=== PATIENT | female | born 1995 | race Caucasian/White ===

== ENCOUNTER → 2020-02-28 16:04 | Outpatient (CLI) | payer SELFPAY ==
[2020-03-02 16:49] LABS: HPV Reflexed? NOT INDICATED
[2020-03-02 20:08] LABS: Chlamydia By Nucleic Acid AMP Negative (Negative)
[2020-03-02 21:52] LABS: Gonococcus By Nucleic Acid AMP Negative (Negative)
== END ==
PROVIDERS: Visit Provider Student in an Organized Health Care Education/Training Program
DX: Z12.4 Encounter for screening for malignant neoplasm of cervix (principal); Z11.3 Encounter for screening for infections with a predominantly sexual mode of transmission; Z32.01 Encounter for pregnancy test, result positive
CPT/HCPCS: 87491; 87591; 88175; G0145

== ENCOUNTER → 2020-03-15 10:17 | Outpatient (CLI) | payer SELFPAY ==
[2020-03-15 11:38] LABS: Absolute Lymphocyte Count 1.45 X10^3/uL (0.83-4.51); Absolute Neutrophil Count 5.1 X10^3/uL (2.0-7.7); Basophil# 0.03 X10^3/uL; Basophil% 0.4 % (0-1); Eosinophil# 0.02 X10^3/uL; Eosinophils% 0.3 % (0-5); Hematocrit 37.3 % (37-47); Hemoglobin 13.1 g/dL (12.0-15.0); Lymphocyte # 1.45 X10^3/ul (4.0); Lymphocyte % 20.8 % (19-41); Mean Corp Hgb Conc 35.1 g/dL (32-36); Mean Corpuscular Hgb 31.9 pg (27.0-32.0); Mean Corpuscular Volume 90.8 fL (81-99); Mean Platelet Vol. 8.9 fl (6.2-12.0); Monocyte# 0.38 X10^3/uL; Monocyte% 5.5 % (0-10); NRBC Flagged by Analyzer 0 % (0-5); Neutrophil # 5.06 X10^3/uL (2.7-7.7); Neutrophil % 72.7 % (47-70); Platelet Count 349 K/mm3 (150-450); RBC Distribution Width CV 12.3 % (11.6-14.6); RBC Distribution Width SD 40.7 fl (35.1-43.9); Red Blood Count 4.11 M/mm3 (4.2-5.4)
[2020-03-15 11:55] LABS: Amphetamine Urine VISTA NEGATIVE (<1000 ng/mL); Barbiturate Urine VISTA NEGATIVE (< 200 ng/mL); Benzodiazepine Urine VISTA NEGATIVE (< 200 ng/mL); Cocaine Urine VISTA NEGATIVE (< 300 ng/mL); Ecstacy Urine VISTA NEGATIVE (< 500 ng/mL); Methadone Urine VISTA NEGATIVE (< 300 ng/mL); PCP Urine VISTA NEGATIVE (< 25 ng/mL); THC Urine VISTA NEGATIVE (< 50 ng/mL); Vista UDS pH Range 8
[2020-03-15 12:33] LABS: HIV - WCH Non-Reactive (Nonreactive); Hepatitis B Surface Antigen Non-Reactive (Nonreactive); Hepatitis C Antibody Non-Reactive (Nonreactive); Rubella IgG Reactive (Nonreactive)
[2020-03-16 03:33] LABS: Prenatal RPR NONREACTIVE (NONREACTIVE)
== END ==
PROVIDERS: Visit Provider Student in an Organized Health Care Education/Training Program
DX: Z34.81 Encounter for supervision of other normal pregnancy, first trimester (principal); G12.9 Spinal muscular atrophy, unspecified
CPT/HCPCS: 36415; 80307; 85025; 86703; 86762; 86803; 87086; 87088; 87340

== ENCOUNTER → 2020-06-25 15:18 | Outpatient (CLI) | payer SELFPAY ==
[2020-06-25 17:17] LABS: Hematocrit 33.5 % (37-47); Hemoglobin 11.2 g/dL (12.0-15.0); Mean Corp Hgb Conc 33.4 g/dL (32-36); Mean Corpuscular Hgb 31.6 pg (27.0-32.0); Mean Corpuscular Volume 94.6 fL (81-99); Mean Platelet Vol. 9.3 fl (6.2-12.0); Platelet Count 360 K/mm3 (150-450); RBC Distribution Width CV 13.2 % (11.6-14.6); RBC Distribution Width SD 46.3 fl (35.1-43.9); Red Blood Count 3.54 M/mm3 (4.2-5.4); White Blood Count 9.5 K/mm3 (4.4-11.0)
[2020-06-25 17:20] LABS: Glucose Challenge Gest 1H 50g 103 mg/dL (70-140)
== END ==
PROVIDERS: Visit Provider Student in an Organized Health Care Education/Training Program
DX: Z34.82 Encounter for supervision of other normal pregnancy, second trimester (principal)
CPT/HCPCS: 36415; 82950; 85027

== ENCOUNTER → 2020-09-18 | Outpatient (CLI) | payer SELFPAY | END | disposition home or self-care (01) | LOC: LABSPEC 17:23 | PROVIDERS: Visit Provider Student in an Organized Health Care Education/Training Program | DX: Z36.85 Encounter for antenatal screening for Streptococcus B (principal) | CPT/HCPCS: 87081 ==

== ENCOUNTER 2020-10-04 01:00 | Inpatient (IN) | payer SELFPAY ==
[2020-10-04] VITALS (26 sets, daily range): BP systolic 110–168; BP diastolic 61–103; PULSE 66–123; RESP 16–18; TEMP 36.3–37.3; O2SAT 96–99; BMI 26.4
[2020-10-04 01:23] LABS: Absolute Lymphocyte Count 2.11 X10^3/uL (0.83-4.51); Absolute Neutrophil Count 8.2 X10^3/uL (2.0-7.7); Basophil# 0.03 X10^3/uL; Basophil% 0.3 % (0-1); Eosinophil# 0.04 X10^3/uL; Eosinophils% 0.3 % (0-5); Hematocrit 33.3 % (37-47); Hemoglobin 11.2 g/dL (12.0-15.0); Lymphocyte # 2.11 X10^3/ul (0.83-4.51); Lymphocyte % 18.2 % (19-41); Mean Corp Hgb Conc 33.6 g/dL (32-36); Mean Corpuscular Hgb 30.6 pg (27.0-32.0); Mean Platelet Vol. 9.3 fl (6.2-12.0); Monocyte# 1.09 X10^3/uL; Monocyte% 9.4 % (0-10); NRBC Flagged by Analyzer 0 % (0-5); Neutrophil # 8.23 X10^3/uL (2.7-7.7); Neutrophil % 71.1 % (47-70); Platelet Count 355 K/mm3 (150-450); RBC Distribution Width CV 13.2 % (11.6-14.6); Red Blood Count 3.66 M/mm3 (4.2-5.4); White Blood Count 11.6 K/mm3 (4.4-11.0)
[2020-10-04] MEDS: Oxytocin 30 units/NS 500 ml 30 UNITS/500 ML IV.SOLN 334 UNITS IV (05:44)
[2020-10-04] MEDS: 0.9% Saline Lock 10 ML Syringe IV (05:44)
[2020-10-04] MEDS: Methylergonovine 0.2 MG/ML Ampul IM (05:47)
--- NOTE | 2020-10-04 05:57 | HP.PCM_ITS ---
History and Physical Date of Admission: 10/04/20 ACOG ANTEPARTUM RECORD - HISTORY AND PHYSICAL (10/04/2020) Name: TUYET PERKINS History of this : This is a 25 year old [id number] presents at 38 wks + 6 days gestation who presents to labor delivery in active labor. OB Physician: Марина Herzog 's Physician: UNDECIDED ...................................................................... : 1995 Age: 25 Address: [address] [place] [address] Phone: (h) [phone] (o) [phone] Insurance Carrier: Emergency Contact: OMID BARAHONAHARRIET/ [phone] ...................................................................... Final BIBIANA: 10/12/20 By Ultrasound: 9 weeks 6 days PARITY: (G-Total Pregnancies P-Fullterm,Premature,Induced AB,Spont AB, Ectopics, Multiple,Living) BIBIANA CONFIRMATION: By LMP: 01/06/20 Final BIBIANA: 10/12/20 OB PROBLEM LIST: Breast feeding; office breast feeding class enc. Desires SMA carrier screening only Genetics screening, CF carrier screening declined. 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 Spouse-Sig Other Phone No - [phone] PRIOR DELIVERY HISTORY DEL DATE GEST LAB WT LB WT OZ TYPE ANES LABOR TX ANTEPARTUM FLOW CHART VISIT GE RTC FU F F WY U U DATE WK MD WKS HT PN HR M SS BP ED WT WY GL D EF ST __ ____ ___ __ __ ___ __ __ __ ___ __ __ __ ___ __ 22 Jonnie 38 CM 1 38 V + + 124/78 0 161 ne ne FT 15 Jonnie 37 JMW 1 37 + + 124/82 sl 163 - - 08 Jonnie 36 CM 1 36 V + + 134/80 sl 160 FT 25 May 34 CM 2 34 V + + 122/62 0 157 - - 10 May 32 CM 2 32 V + + 128/72 0 156 tr ne 26 Apr 30 CM 2 30 + + 122/70 0 152 - - 12 Apr 28 CM 2 27 + + 120/72 0 149 - - 15 Mar 24 CM 4 24 + + 124/64 0 147 tr ne 15 Feb 20 CM 4 + + 116/68 0 139 - - Apr 17 CM 3 + + 122/60 0 138 - - Mar 13 CM 4 + O 118/60 0 134 ne ne 03 Mar 9 CM +U O 118/68 0 133 tr ne ANTEPARTUM NOTE(S): Oct 02 2020: Sep 25 2020: Ctxs-mild, Good FM Sep 18 2020: Sep 04 2020: Aug 20 2020: Aug 06 2020: Jul 23 2020: no concerns Jun 25 2020: GCT/labs today May 28 2020: May 07 2020: Apr 09 2020: Mar 15 2020: US today COMPREHENSIVE ANTEPARTUM NOTE(S): Oct 02 2020: Tuyet is here with SO for PNV. Feeling well with good FM. Can feel baby with hiccups. No edema noted. Having no ctx. Would like cervix check today. Urine neg/neg. LSS Oct 02 2020: 38/4w. Reports FM, but different than prior. Discussed kick counts and precautions of when to come in or call. NST REACTIVE today. Wants to wait until next week to schedule term induction. F/u 1w. CM Sep 20 2020: H taken to OB.tkg Sep 18 2020: No further chest pain. Thinks she had some heartburn yesterday. Is not taking anything for this-- advised to sheepskin pickler Tums to have in case this is needed. Good FM. Slight edema in feet. GBS and LARC done today. Declines LARC. Advised to pre-register. kbm Sep 18 2020: 36/4w. GBS done. F/u 1w. CM Sep 04 2020: No further chest pain- see note from 08/06/20. Good FM. Voicing no concerns. kbm Sep 04 2020: 34/4w visit. F/u 2w GBS. CM Aug 20 2020: Tuyet is here with SO for PNV. Having good FM. States baby is quite active. Feeling well without concerns for today. No further chest pains as before. No edema noted. Urine tr/neg. LSS Aug 20 2020: 32/3w Has sales floor associate picked out (FP in [place]). F/u 2w. CM Aug 06 2020: Tuyet is here att 30.3 w gest for visit. Feeling well. Baby active. Taking Childbirth and BF classes discussed as she is interested. DAMON. Aug 06 2020: 30/3w. Had some sharp sternal chest pain yesterday for about 1 hr. Nothing today. Denied exacerbating/remitting factors. No reflux, no associated symptoms: lightheadednss, dizziness, numbness, arm pain. Discussed these warning signs of when to go to ER. Discussed etiologies: costochondritis, reflux, physiology of , ID/PE. F/u 2w. CM Jul 23 2020: Tuyet is here for a PNV. Good FM. No edema present. No concerns expressed at this time. MK Jul 23 2020: 28/3w visit. Discussed TDap. Nephew with TGA - declined ECHO. F/u 2w. CM Jun 25 2020: Tuyet is here for PNV. GCT/labs today. Eating and talking fluids well. States she is feeling well with goo FM. No edema noted today Urine tr/neg. LSS Jun 25 2020: 24/3w visit.Glucola done today. Nephew with TGA - declined ECHO. F/u 4w. CM May 28 2020: Comprehensive US today. Feeling good FM. Glucola bottle and instructions given to be done next visit and to schedule appt after 06/25.21. May 28 2020: 20/3w visit. Anatomy US today - wnl. Glucola bottle given. Nephew with VSD - declined mfm consult with ECHO. F/u 4w. CM May 07 2020: Feeling FM. Voicing no concerns today. May 07 2020: 17/3w visit. Doing well today without issues or concerns. Family hx of TGA - plan to discuss ECHO next visit. F/u 3w with anatomy US. CM Apr 09 2020: Tuyet reporting feeling tired. No nausea or vomiting. Reviewed water intake. Apr 09 2020: 13/3w visit. SMA carrier neg. F/u 4w. CM Apr 04 2020: SMA gene carrier test negative. Notify pt at next visit. Mar 16 2020: TELE-HEALTH NOB VISIT, DURATION 30 MINUTES. Tuyet is a 25 year old with an BIBIANA of 10/12/2020, current GA is 10 w 0 d. She resides with her Omid, and she states that they are both happy and excited about the . She states that she feels well, aside from some fatigue. Tuyet states that she has a good appetite, and is working on making sure that she has protein included thr Mar 15 2020: Tuyet is here for PNV. Had US prior to apt. Genetics packet given. Labs to be completed today. States she is feeling really well without N/V. No edema noted. Urine dipped tr and neg. LSS Mar 15 2020: 9/6w visit. BIBIANA 10/12/20 by LMP FINAL. Declines genetic screening. Desires SMA carrier screening, does not want CF carrier screening at this time. Diseases described. Nephew with transposition of great vessels. Consider ECHO. F/u 4w CM Feb 28 2020: Tuyet is a 25 yr old NEW pt to our practice, here w/her , Omid for Missed Menses. This will be the first baby for both. By LMP 01/05/29, she would be 7 wks 4 days, BIBIANA 10/12/20. Hx regular monthly periods. UPT positive here. Minimal nausea. Taking PN gummies. No spotting, no cramping. No medical problems. No abdominal surgeries. This will be her first pap; procedure reviewed. Pap, GC, Chla REVIEW OF SYSTEMS: GENERAL - Denies fever, or chills SKIN - Denies rash, new skin lesions, or change in moles EYES - Denies blurred vision, or change in visual acuity EARS - Denies ear pain, or difficulty hearing NOSE - Denies nasal congestion, discharge, or bleeding MOUTH - Denies sore throat, or difficulty swallowing NECK - Denies pain or swelling RESPIRATORY - Denies shortness of breath, cough, wheezing CARDIOVASCULAR - Denies palpitations, chest pain, orthopnea, PND, peripheral edema, syncope or claudication GASTROINTESTINAL - Denies nausea, vomiting, diarrhea, constipation, Denies abdominal pain, melena and or bright red blood GENITOURINARY - Denies dysuria, frequency of urination, urgency, or hesitancy MUSCULOSKELETAL - Denies joint or muscle pain, or back pain NEUROLOGICAL - Denies localized numbness, weakness, or tingling PSYCHIATRIC - Denies depression, anxiety, substance abuse or suicide attempts ENDOCRINE - Denies heat or cold intolerance, weight loss or gain, increasing thirst HEMATO-IMMUNOLOGIC - Denies easy bruising, bleeding, oral ulcerations or recur rent infections GENETICS SCREENING: Age 35+ years: No Thalassemia: No Neural Tube Defect: No Down Syndrome: No JANAE-SACHS: No Sickle Cell Disease: No Hemophilia: No Musc. Dystrophy: No Cystic Fibrosis: No-declines screening Eryn Chorea: No Mental Retardation: No Fragile X: No Other genetic: No Other defects: No SABs/still births: No Drugs since LMP: No INFECTION HISTORY: High risk AIDS: No High risk Hepatitis: No Exposed to TB: No Exposed to Herpes: No Rash/viral illness since LMP: No History of STD: No MENSTRUAL HISTORY: *Menses Amount/Duration: 5-6 daysMenses Regularity: RegularMenarche (Age Onset): 14* PAST SUMMARY: PARITY: 1. Total Pregnancies............ 1 2. Full Term Pregnancies........ 0 3. Premature.................... 0 4. Abortions - Induced.......... 0 5. Abortions - Spontaneous...... 0 6. Ectopics..................... 0 7. Multiple Births.............. 0 8. Living Children.............. 0 PHYSICAL EXAMINATION General Appearence: 25 yo female in no acute distress Vital Signs: AF, VSS Heart: RRR without rubs or gallops Lungs: CTA x 2 Breasts: deferred Abdomen: gravid Pelvis: Cervix: 6/95 with gross rupture of membranes Presentation: cephalic Station: +1 Fetus: Size: AGA Movement: present Heart: present LAB TEST(S) ORDERED SINCE:01/16/20 03/27/2020 MISCELLANEOUS LAB PROCEDURE 03/17/2020 CULTURE, URINE 03/16/2020 RPR 03/15/2020 URINE DRUG SCREEN (VISTA) 03/15/2020 RUBELLA IGG 03/15/2020 T AND S-NO CHARGE W/PNP 03/15/2020 HIV - [facility] 03/15/2020 HEPATITIS C ANTIBODY 03/15/2020 HEPATITIS B SURFACE ANTIGEN 03/15/2020 CBC W/DIFF, AUTOMATED 03/02/2020 PAP I-G W/RFX HRHPV-APTIMA 03/02/2020 CHLAMYDIA/GC MURIEL APTIMA 10/04/2020 TYPE AND SCREEN 10/03/2020 COVID 19 AG RAPID (RN COLLECT) 10/03/2020 CBC W/DIFF, AUTOMATED 10/03/2020 (ROM) RUPTURE OF MEMBRANES 09/21/2020 RULE OUT BETA STREP (GRP. B) 06/25/2020 GLUCOSE CHALLENGE GEST 1H 50G 06/25/2020 CBC-COMPLETE BLOOD CNT NO DIFF == ==== Order Observation Description Value Ref_Range A* Site == ==== COVID 19 AG RAP NOTE MATTHEWS Labor [facility]~[address] [place], [address]~ TYPE AND SCRE AB SCREEN GEL NEGATIVE ML CBC W/DIFF, AUT NOTE MATTHEWS CBC W/DIFF, AUT WBC 11.6 K/mm3 4.4-11.0 H ML CBC W/DIFF, AUT RBC 3.66 M/mm3 4.2-5.4 L ML CBC W/DIFF, AUT HGB 11.2 g/dL 12.0-15.0 L ML CBC W/DIFF, AUT HCT 33.3 37-47 L ML CBC W/DIFF, AUT MCV 91.0 fL 81-99 ML CBC W/DIFF, AUT MCH 30.6 pg 27.0-32.0 ML CBC W/DIFF, AUT MCHC 33.6 g/dL 32-36 ML CBC W/DIFF, AUT RDW CV 13.2 11.6-14.6 ML CBC W/DIFF, AUT RDW SD 43.0 fl 35.1-43.9 ML CBC W/DIFF, AUT PLT 355 K/mm3 150-450 ML CBC W/DIFF, AUT MPV 9.3 fl 6.2-12.0 ML CBC W/DIFF, AUT NEUT% 71.1 47-70 H ML CBC W/DIFF, AUT LY% 18.2 19-41 L ML CBC W/DIFF, AUT MONO% 9.4 0-10 ML CBC W/DIFF, AUT EO% 0.3 0-5 ML CBC W/DIFF, AUT BASO% 0.3 0-1 ML CBC W/DIFF, AUT IG% 0.700 0.0-0.9 ML IG% - Immature Granulocytes (promyelocytes, myelocytes and metamyelocytes) > 1% indicates that a LEFT SHIFT is Present. CBC W/DIFF, AUT ABSOLUTE NEUT 8.2 X10 3/uL 2.0-7.7 H ML CBC W/DIFF, AUT ABSOLUTE LYMPH 2.11 X10 3/uL 0.83-4.51 ML CBC W/DIFF, AUT NUCLEATED RBC 0 0-5 ML (ROM) RUPTURE O NOTE MATTHEWS (ROM) RUPTURE O C-LINE PRESENT? Internal QC ML Cancelled via OM: grossly ruptured (ROM) RUPTURE O ROM Negative ML Cancelled via OM: grossly ruptured (ROM) RUPTURE O RECORD KIT LOT# ML Cancelled via OM: grossly ruptured RULE OUT BETA S NOTE MATTHEWS GLUCOSE CHALLEN NOTE MATTHEWS GLUCOSE CHALLEN GLU GEST 50G 1H 103 mg/dL 70-140 ML CBC-COMPLETE BL NOTE MATTHEWS CBC-COMPLETE BL WBC 9.5 K/mm3 4.4-11.0 ML CBC-COMPLETE BL RBC 3.54 M/mm3 4.2-5.4 L ML CBC-COMPLETE BL HGB 11.2 g/dL 12.0-15.0 L ML CBC-COMPLETE BL HCT 33.5 37-47 L ML CBC-COMPLETE BL MCV 94.6 fL 81-99 ML CBC-COMPLETE BL MCH 31.6 pg 27.0-32.0 ML CBC-COMPLETE BL MCHC 33.4 g/dL 32-36 ML CBC-COMPLETE BL RDW CV 13.2 11.6-14.6 ML CBC-COMPLETE BL RDW SD 46.3 fl 35.1-43.9 H ML CBC-COMPLETE BL PLT 360 K/mm3 150-450 ML CBC-COMPLETE BL MPV 9.3 fl 6.2-12.0 ML MISCELLANEOUS L NOTE MATTHEWS MISCELLANEOUS L MISC LAB TEST ML TEST RESULT LIMITS SMN1 Copy Number Analysis Genetic Counselor: Not applicable Specimen Type: Peripheral Blood Ethnicity: Not Provided Indication: Not Provided SMA Results: Note Disease (Gene) Results Interpretation Spinal muscular atrophy NEGATIVE 2 copies of SMN1; (SMN1) negative for c.*3+80T>G SNP. This result reduces, but does not eliminate the risk to be a carrier. Information regarding clinical indication may provide a more detailed interpretation. For ethnic-specific risk revisions with no family history see Information Table. General Comments Note Genetic counseling services are available. To access [facility] please visit [email or web address] or call [phone] ([phone]). Additional Clinical Info Note Spinal muscular atrophy (SMA) is an autosomal recessive neurodegenerative disorder with variable age at onset and severity, characterized by progressive degeneration of the lower motor neurons in the spinal cord and brain stem, leading to muscle weakness, and in its most common form, respiratory failure by age two. Complications of SMA may include poor weight gain, sleep difficulties, pneumonia, scoliosis, and joint deformities. In severely affected individuals, abnormal ultrasound findings may include congenital joint contractures, polyhydramnios, and decreased movement (Marge, PMID:[id number]). Treatment is supportive. Targeted therapies may be available for some individuals. Approximately 94% of affected individuals have 0 copies of the SMN1 gene; in these individuals an increase in the number of copies of the SMN2 gene correlates with reduced disease severity (Sanju, PMID:[id number]). Individuals with one copy of the SMN1 gene are predicted to be carriers of SMA; those with two or more copies have a reduced carrier risk. For individuals with two copies of the SMN1 gene, the presence or absence of the variant c.*3+80T>G correlates with an increased or decreased risk, respectively, of being a silent carrier (2+0) (Malik PMID [id number]; Sergio, PMID [id number]). Method/Limitations: Note Spinal muscular atrophy: The copy number of SMN1 exon 7 is assessed relative to internal standard reference genes by quantitative polymerase chain reaction (qPCR). A mathematical algorithm calculates 0, 1, 2 and 3 copies with statistical confidence. When no copies of SMN1 are detected, the primer and probe binding sites are sequenced to rule out variants that could interfere with copy number analysis and SMN2 copy number is assessed by digital droplet PCR analysis relative to an internal standard reference gene. For carrier screening, when two copies of SMN1 are detected, allelic discrimination qPCR targeting c.*3+80TG in SMN1 is performed. Limitations: False positive or false negative results may occur for reasons that include genetic variants, blood transfusions, bone marrow transplantation, somatic or tissue-specific mosaicism, mislabeled samples, or erroneous representation of family relationships. Information Table Note SMA risk reductions for individuals with no family history Disorder (Gene) Reference Sequence Spinal Muscular Atrophy (SMN1) [id number] Population Detection Pre-test Post-test risk of Post-test Rate carrier being a carrier risk of (Copy risk with 2 copies being a number + carrier SNP) POSITIVE NEGATIVE with 3 for the for the copies c.*3+80T>G c.*3+80T>G SNP SNP 90.3% 1 in 72 1 in 34 1 in 375 1 in 4200 Cymro Ashkenazi 92.8% 1 in 67 High risk 1 in 918 1 in 5400 Islam 93.6% 1 in 59 High risk 1 in 907 1 in 5600 95.0% 1 in 47 1 in 29 1 in 921 1 in 5600 92.6% 1 in 68 1 in 140 1 in 906 1 in 5400 Mixed or For counseling purposes, consider using the Other ethnic ethnic background with the most Backgroung conservative risk estimates. includes carriers who are silent carriers (2+0) and Carriers with a pathogenic variant not detected in this Assay Sergio, PMID [id number]; Radha, PMID [id number]; Tacos, PMID [id number] Disclaimer: Note This test was developed and its performance characteristics determined by [facility]. It has not been cleared or approved by the Food and Drug Administration. [facility] is a business unit of [employer], a wholly-owned subsidiary of [employer]. [employer]) is a registered service rayo of [employer]. Testing performed at [facility], [address], [place] [address] Jeri Gannon, PhD, [facility], Logistic Manager This document contains private and confidential information protected by state and federal law. If you have received this document in error, please call [facility] Copy Number Analysis PDF Director Review Note Anu Car, Ph.D., [facility] TESTING PERFORMED AT [facility]. ORIGINAL REPORT ON FILE IN LAB CONTAINS ADDITIONAL TEST SITE INFORMATION. CULTURE, URINE NOTE MATTHEWS RPR NOTE MATTHEWS RPR RPR NONREACTIVE NONREACTIVE ML Reason for Type AND Screen/Red Cells: Surgery? N [facility]~[address] [facility] [place], [address]~ T AND BLOOD TYPE GEL A POSITIVE N ML T AND AB SCREEN GEL NEGATIVE N ML HEPATITIS C ANT NOTE MATTHEWS HEPATITIS C ANT HEPATITIS C AB Non-Reactive Nonreactive ML Non Reactive: < 0.8 Equivocal: >/= 0.8 to < 1.0 Reactive: >/= 1.0 The CDC recommends that a reactive/equivocal HCV antibody result be followed up by the HCV Nucleic Acid Amplification test (457518) HEPATITIS B ANA NOTE MATTHEWS HEPATITIS B ANA HEPB SURFACE AG Non-Reactive Nonreactive ML HIV - [facility] NOTE [facility]THEWS HIV - [facility] HIV - [facility] Non-Reactive Nonreactive ML RUBELLA IGG NOTE MATTHEWS RUBELLA IGG RUBELLA IGG Reactive Nonreactive ML Antibody Results Interpretation of Immune Status Non Reactive Presumed Non-Immune Equivocal Equivocal Reactive Presumed Immune URINE DRUG SCRE NOTE MATTHEWS URINE DRUG SCRE TO BE CONFIRMED ML CONFIRMATORY TESTING FOR ALL POSITIVE URINE DRUG SCREEN RESULTS WILL ONLY BE SENT OUT UPON PHYSICIAN ORDER. VISTA Urine Drug Screen methods provide only preliminary analytical test results. A more specific alternate chemical method must be used in order to obtain a confirmed analytical result. Gas chromatography/mass spectrometery (GC/MS) is the preferred confirmatory method. Clinical consideration and professional judgement should be applied to any drug of abuse test result, particularly when preliminary positive results are used. URINE TCA TESTING MUST BE ORDERED SEPARATELY. USE TEST MNEMONIC: UTCA URINE DRUG SCRE VISTA UDS PH 8 ML URINE DRUG SCRE AMPHETAMINES NEGATIVE <1000 ng/mL ML URINE DRUG SCRE BARBITIURATES NEGATIVE < 200 ng/mL ML URINE DRUG SCRE BENZODIAZIPINE NEGATIVE < 200 ng/mL ML URINE DRUG SCRE COCAINE NEGATIVE < 300 ng/mL ML URINE DRUG SCRE ECSTACY NEGATIVE < 500 ng/mL ML URINE DRUG SCRE METHADONE NEGATIVE < 300 ng/mL ML URINE DRUG SCRE OPIATES NEGATIVE < 300 ng/mL ML URINE DRUG SCRE PCP NEGATIVE < 25 ng/mL ML URINE DRUG SCRE THC NEGATIVE < 50 ng/mL ML CBC W/DIFF, AUT NOTE MATTHEWS CBC W/DIFF, AUT WBC 7.0 K/mm3 4.4-11.0 ML CBC W/DIFF, AUT RBC 4.11 M/mm3 4.2-5.4 L ML CBC W/DIFF, AUT HGB 13.1 g/dL 12.0-15.0 ML CBC W/DIFF, AUT HCT 37.3 % 37-47 ML CBC W/DIFF, AUT MCV 90.8 fL 81-99 ML CBC W/DIFF, AUT MCH 31.9 pg 27.0-32.0 ML CBC W/DIFF, AUT MCHC 35.1 g/dL 32-36 ML CBC W/DIFF, AUT RDW CV 12.3 % 11.6-14.6 ML CBC W/DIFF, AUT RDW SD 40.7 fl 35.1-43.9 ML CBC W/DIFF, AUT PLT 349 K/mm3 150-450 ML CBC W/DIFF, AUT MPV 8.9 fl 6.2-12.0 ML CBC W/DIFF, AUT NEUT% 72.7 % 47-70 H ML CBC W/DIFF, AUT LY% 20.8 % 19-41 ML CBC W/DIFF, AUT MONO% 5.5 % 0-10 ML CBC W/DIFF, AUT EO% 0.3 % 0-5 ML CBC W/DIFF, AUT BASO% 0.4 % 0-1 ML CBC W/DIFF, AUT IM GRAN % 0.300 % 0.0-0.9 ML IG% - Immature Granulocytes (promyelocytes, myelocytes and metamyelocytes) > 1% indicates that a LEFT SHIFT is Present. CBC W/DIFF, AUT ABSOLUTE NEUT 5.1 X10 3/uL 2.0-7.7 ML CBC W/DIFF, AUT ABSOLUTE LYMPH 1.45 X10 3/uL 0.83-4.51 ML CBC W/DIFF, AUT NRBC, FLAGGED 0 % 0-5 ML CHLAMYDIA/GC NA NOTE MATTHEWS CHLAMYDIA/GC NA CHLAMY,NUC ACID Negative Negative LC CHLAMYDIA/GC NA GC BY NUC ACID Negative Negative LC Performed at: - [facility] [id number] Private Branch Exchange Installer: Britney Underwood MD, Phone: [phone] PAP I-G W/RFX H NOTE MATTHEWS PAP I-G W/RFX H DIAGN Comment . LC NEGATIVE FOR INTRAEPITHELIAL LESION OR MALIGNANCY. PAP I-G W/RFX H ADEQ Comment . LC Satisfactory for evaluation. Endocervical and/or squamous metaplastic cells (endocervical component) are present. PAP I-G W/RFX H PERFORM Comment . LC Ellen Geller, Exhibition Specialist (ASCP) PAP I-G W/RFX H TEST METHOD Comment . LC This liquid based ThinPrep(R) pap test was screened with the use of an image guided system. PAP I-G W/RFX H COMM . . LC PAP I-G W/RFX H PAPSMR Comment . LC The Pap smear is a screening test designed to aid in the detection of premalignant and malignant conditions of the uterine cervix. It is not a diagnostic procedure and should not be used as the sole means of detecting cervical cancer. Both false-positive and false-negative reports do occur. PAP I-G W/RFX H HPV RFLX Comment . LC The HPV DNA reflex criteria were not met with this specimen result therefore, no HPV testing was performed. Performed at: [address] [place] [id number] Private Branch Exchange Installer: Britney Underwood MD, Phone: [phone] *Negative results from patients with symptom onset beyond five days should be treated as presumptive and confirmed by a molecular assay if clinically necessary. Negative results should not be used as the sole basis for treatment or for patient management. COVID 19 AG RAPID (RN COLLECT) *Positive results do not differentiate between SARS-CoV and SARS-CoV-2. If differentation of the specific SARS virus is desired an additional sample and an additional order is required. COVID 19 AG RAPID (RN COLLECT) * This test has not been FDA cleared or approved; the test has been authorized by FDA under an Emergency Use Authorization (EAU) for use by laboratories certified under CLIA that meet the requirements to perform moderate, high, or waived complexity tests. COVID 19 AG RAPID (RN COLLECT) Normal Reference Range: Negative Testing performed on [employer] analyzer MILAGROS (lateral flow immunofluorescent assay) SARS-CoV-2 (COVID 19) Negative A POSITIVE Group B Beta Streptococcus is not isolated. Urine Culture ORGANISM 1: Lactobacillus species [place] Count 11,000-25,000 == ==== Impression /Plan: 38 wks + 6 days intrauterine in active labor with spontaneous rupture of membranes. Preparations in progress for delivery.
--- NOTE | 2020-10-04 05:59 | EX.PCM.OBRPT ---
Maternal Data Information Final BIBIANA: 10/12/20 Gestational age: 38 weeks 6 days Vaginal Delivery Operative Information Date of Procedure: 10/04/20 Pre-Operative Diagnosis: IUP Post-Operative Diagnosis: IUP Type of Anesthesia: Local with 1% Lidocaine Estimated Blood Loss: 450 cc Findings Description of Procedure: Spontaneous vaginal delivery of a viable male with Apgars of 8/9 from an occiput anterior presentation with clear amniotic fluid and normal three-vessel placenta. First-degree midline episiotomy extended to a second-degree midline laceration repaired with 3-0 Rapide suture under local. Sponges okay. Delivery physician: Herber Landry MD. Presentation: Vertex Amniotic Membrane Rupture Type: Spontaneous Amniotic Fluid Description: Clear Placental Delivery Description: Spontaneous Placenta Disposition: [facility] Cord Vessel Description: 3 Vessels Cord Entanglement: None A Gender: Male (1 minute): 8 (5 minute): 9 Post Vaginal Delivery Medications Given After Delivery: IV Pitocin and IM Methergin Episiotomy Description: Midline and 1st degree Laceration: None, Midline and 2nd degree Complication Complications: None
--- NOTE | 2020-10-04 06:03 | PCM.DC ---
Documented by User: Dr. Herber Landry MD 10/04/20 06:05 Discharge Instructions Diet Discharge Diet: No restrictions Activity Discharge Activity: May Drive (In 1 to 2 days if not taking narcotic pain medication), May Shower and May Take a Tub Bath May resume sexual activity in: 4-6 weeks Additional Activity Instructions:: Nothing in the vagina for 4-6 weeks. You may return to work/school in 6 weeks. Dressing / Incision Call your doctor if you observe: Fever of 101 or Higher, Inability to urinate, Inability to have a bowel movement and Using more than 1 pad per hour Follow Up Care Please Follow Up With: Марина Us DO When: Call [phone] to make an appointment with your doctor in 6 weeks. Test Results: Test results from this visit will be discussed in further detail at your follow-up appointment, if applicable. Discharge Plan Admission Admit Date/Time: 10/04/20 01:00 Primary Reason for Your Visit: Vaginal Delivery Attending Provider: Herber Landry Discharge Orders/Prescriptions Prescriptions: Continued [id number] 1 mg Tablet 1 tab PO DAILY RF: 0 Disposition Disposition (needs filled in before D/C Order can be placed): Home, Self Care Documented by User: Dr. Марина Us DO 10/05/20 08:34 Discharge Instructions Diet Discharge Diet: No restrictions Activity Discharge Activity: Return to Normal Activity May resume sexual activity in: 4-6 weeks Weight Bearing Status: Weight bearing as tolerated Dressing / Incision Call your doctor if you observe: Using more than 1 pad per hour, Shortness of breath, Dizziness, Fainting spells, Swelling in the ankles, Chest pain and Calf discomfort Cleanse incision/area with: Soap & Water Follow Up Care Please Follow Up With: Марина Us DO When: 2 week telehealth, 6 week Discharge Plan Admission Admit Date/Time: 10/04/20 01:00 Primary Reason for Your Visit: Vaginal Delivery Attending Provider: Herber Landry Discharge Orders/Prescriptions Prescriptions: Continued [id number] 1 mg Tablet 1 tab PO DAILY RF: 0 Disposition Disposition (needs filled in before D/C Order can be placed): Home, Self Care
[2020-10-04] MEDS: Ibuprofen 600 MG Tablet PO ×2 (06:42→21:12)
[2020-10-05 04:50] VITALS: BP 120/73; PULSE 97; RESP 16; TEMP 36.4; O2SAT 96
--- NOTE | 2020-10-05 07:29 | PCM.PN.OB ---
Subjective Subjective day 1. Feeling well. Lochia minimal. Objective Data Objective Data Vital Signs: Vital Signs Temp Pulse Resp BP Pulse Ox 97.6 F L 97 16 120/73 96 10/05/20 04:50 10/05/20 04:50 10/05/20 04:50 10/05/20 04:50 10/05/20 04:50 Oxygen Delivery Method Room Air Weight: 74.48 kg Body Mass Index (BMI) 26.4 Intake & Output: Intake and Output for Last 24 Hours 10/03/20 10/04/20 10/05/20 23:59 23:59 23:59 Intake Total 1100 / 1100 Output Total 500 / 500 Balance 600 / 600 Lab / Micro Data Result Diagrams: 10/04/20 01:10 Micro: Microbiology 10/04/20 01:25 Mucosa - Nose SARS-CoV-2 Antigen (Rapid) - Final Physical Exam Const alert, oriented x3 and no apparent distress HEENT normocephalic Head and Scalp: atraumatic Neck full ROM Resp normal respiratory effort and no use of accessory muscles Cardio regular rate GI GI Narrative: Uterus 2 cm below umbilicus Extremity no pedal edema Skin no rashes or lesions noted Psych mental status grossly normal and affect normal Assessment & Plan (1) Vaginal delivery: PLAN: 25-year-old day 1 status post vaginal delivery. Anticipate home today.
[2020-10-05 09:12] VITALS: BP 130/70; PULSE 105; RESP 16; TEMP 36.6; O2SAT 98
== END 2020-10-05 11:50 | disposition home or self-care (01) | DRG 807 ==
LOC: WPOUT 01:03 → WP 01:03
PROVIDERS: Admitting Provider Obstetrics & Gynecology; Visit Provider Obstetrics & Gynecology
DX: O70.1 Second degree perineal laceration during delivery (principal); Z20.822 Contact with and (suspected) exposure to COVID-19; Z3A.38 38 weeks gestation of pregnancy; Z37.0 Single live birth
CPT/HCPCS: 59025; 59050; 85025; 86850; 86900; 86901; 87426; 99218; A4216; G0378

== ENCOUNTER → 2022-10-13 | Outpatient (CLI) | payer SELFPAY ==
[2022-10-13 16:50] LABS: Hemoglobin A1c 5.2 % (3.8-5.6); Progesterone Level 0.57 ng/mL (See Comment); Rubella IgG Reactive (Nonreactive)
[2022-10-13 16:51] LABS: Estradiol 71.8 pg/mL; Follicle Stimulating Hormone 5.7 mIU/mL; Luteinizing Hormone 8.1 mIU/mL; Prolactin 6.8 ng/mL; T4 Free Direct 0.91 ng/dL (0.76-1.46); Thyroid Stim Hormone (TSH) 1.38 uIU/mL (0.358-3.74)
[2022-10-16 05:07] LABS: V-Zoster IgG (Immunity) 867 index (Immune >165)
== END | disposition home or self-care (01) ==
LOC: WOBLAB 15:20
PROVIDERS: Visit Provider Student in an Organized Health Care Education/Training Program
DX: N97.9 Female infertility, unspecified (principal)
CPT/HCPCS: 36415; 82670; 83001; 83002; 83036; 84144; 84146; 84439; 84443; 86762; 86787

== ENCOUNTER → 2022-10-20 | Outpatient (CLI) | payer SELFPAY | END | disposition home or self-care (01) | LOC: WOBLAB 15:43 | PROVIDERS: Visit Provider Student in an Organized Health Care Education/Training Program | DX: N97.9 Female infertility, unspecified (principal) | CPT/HCPCS: 36415; 84144 ==